=== PATIENT | female | born 1960 | race Caucasian/White ===

== ENCOUNTER 2017-07-10 10:22 | Inpatient (IN) | payer OTHER ==
[~2017-07-10] VITALS: Ht 172.7 cm; Wt 95.3 kg
[2017-07-10] MEDS ORDERED: DILTIAZEM HCL 25 MG/5 ML VIAL IV ONE ×3 (10:52→13:00)
[2017-07-10 11:14] LABS: Basophils # (auto) 0 uL; Basophils % (auto) 0.6 % (0.0-2.0); Eosinophils # (auto) 0.3 uL; Eosinophils % (auto) 6.5 % (0.0-7.0); Hematocrit 45.6 % (36.0-46.0); Hemoglobin 15.5 g/dL (12.2-16.2); Lymphocytes # (auto) 2.3 uL; Lymphocytes % (auto) 44.7 % (10.0-50.0); Mean Corpuscular Hgb Conc. 33.9 g/dL (32.0-36.0); Mean Corpuscular Volume 94.3 fL (80.0-100.0); Monocytes # (auto) 0.6 uL; Monocytes % (auto) 10.9 % (0.0-12.0); Neutrophils # (auto) 1.9 uL; Neutrophils % (auto) 37.3 % (37.0-80.0); Nucleated Red Blood Cells % 0.1 %; Platelet Count (auto) 249 10^3/uL (140-450); Red Cell Distribution Width 13.6 % (11.8-14.3); White Blood Cell 5.2 10^3/uL (4.4-10.8)
[2017-07-10] MEDS ORDERED: SODIUM CHLORIDE 0.9% 1,000 ML IVB ONE (11:16)
[2017-07-10 11:39] LABS: Albumin 3.8 g/dL (3.4-5.0); Alkaline Phosphatase 105 U/L (45-117); Anion Gap 10 (5-15); Aspartate Aminotransferase 15 U/L (15-37); BUN/Creatinine Ratio 13.2; Bilirubin, Total 0.7 mg/dL (0.2-1.0); Blood Urea Nitrogen 12 mg/dL (7-18); Calcium 8.6 mg/dL (8.5-10.1); Carbon Dioxide 23 mmol/L (21-32); Chloride 106 mmol/L (98-107); GFR African American 82 mL/min; GFR Non-African American 67 mL/min; Glucose 99 mg/dL (74-106); Magnesium 2.2 mg/dL (1.6-2.6); Potassium 3.5 mmol/L (3.5-5.1); Sodium 139 mmol/L (136-145); Total Protein 7.3 g/dL (6.4-8.2)
[2017-07-10 11:52] LABS: Urine Bilirubin Negative (Negative); Urine Blood Negative /uL (Negative); Urine Color Yellow (Yellow); Urine Glucose Normal (Normal); Urine Ketone Negative (Negative); Urine Nitrite Negative (Negative); Urine RBC <1 /hpf (0 - 4); Urine Squamous Epithelial Cell FEW /hpf (<5); Urine Urobilinogen Normal (Negative)
[2017-07-10 11:59] LABS: INR 1.01 (0.9-1.15); Partial Thromboplastin Time 25.4 sec (22.64-33.71)
[2017-07-10 12:20] LABS: B-Type Natriuretic Peptide 36.58 pg/mL (0-100)
[2017-07-10] MEDS ORDERED: cefTRIAXone 1GM/10ml IVPUSH 10 ML IV ONE (12:30)
[2017-07-10 12:42] LABS: Temperature: 23.1 C (20.0-25.0)
[2017-07-10] MEDS ORDERED: DIGOXIN (250MCG/ML) 2 ML AMPULE IV ONE (12:45)
[2017-07-10] MEDS ORDERED: LORazepam 0.5 MG TAB PO PRN (13:15)
[2017-07-10] MEDS ORDERED: NITROGLYCERIN 0.4 MG SL TAB SL PRN (13:15)
[2017-07-10] MEDS ORDERED: ACETAMINOPHEN 500 MG TAB PO PRN (13:15)
[2017-07-10] MEDS ORDERED: MORPHINE SULF INJ 2 MG/ML SYRINGE 1ML IV PRN ×2 (13:15)
[2017-07-10] MEDS ORDERED: TEMAZEPAM 15 MG CAP PO PRN (13:15)
[2017-07-10] MEDS ORDERED: LACTULOSE 20Gm/30ML SOLN PO PRN (13:15)
[2017-07-10] MEDS ORDERED: PROMETHAZINE HCL 25 MG/ML 1ML IV PRN (13:15)
[2017-07-10] MEDS ORDERED: HYDROcodone-ACET 5/325MG TAB PO PRN (13:15)
[2017-07-10] MEDS ORDERED: AMIODARONE HCL 150 MG in D5W 5% 100 ML IV ONE (13:50)
[2017-07-10] MEDS ORDERED: AMIODARONE HCL 900 MG in DEXTROSE 500 ML IV SCH ×2 (14:00→20:00)
[2017-07-10] MEDS ORDERED: CYAN500L3 PO (15:29)
[2017-07-10] MEDS ORDERED: ASPI81CH59 PO (15:29)
[2017-07-10] MEDS ORDERED: LEVO88TA4 PO (15:29)
[2017-07-10] MEDS ORDERED: CYANOCOBALAMIN 500 MCG TAB PO ONE (17:30)
[2017-07-10] MEDS ORDERED: METOPROLOL TARTRATE 25 MG TAB PO SCH (22:00)
[2017-07-10] MEDS: NITROGLYCERIN 2% OINT 1GM PKG TD ONE ×2 (22:07→22:17)
[2017-07-10] MEDS: NITROGLYCERIN 2% OINT 1GM PKG TD SCH ×2 (22:16→23:15)
[2017-07-10 22:50] VITALS: BP 145/93
[2017-07-10] MEDS: FAMOTIDINE 20 MG TAB PO SCH (23:15)
[2017-07-10] MEDS: ENOXAPARIN SOD 100 MG/1 ML SYRINGE SC SCH (23:15)
[2017-07-10] MEDS: METOPROLOL TARTRATE 50 MG TAB PO SCH (23:15)
[2017-07-11 00:45] VITALS: BP 111/73
[2017-07-11] MEDS: NITROGLYCERIN 2% OINT 1GM PKG TD SCH ×2 (00:58→02:00)
[2017-07-11] MEDS ORDERED: MELA3TAB27 PO (01:50)
[2017-07-11 02:30] VITALS: BP 103/60
[2017-07-11 05:41] LABS: Basophils # (auto) 0.1 uL; Basophils % (auto) 0.9 % (0.0-2.0); Eosinophils # (auto) 0.3 uL; Eosinophils % (auto) 4.4 % (0.0-7.0); Hematocrit 39.7 % (36.0-46.0); Hemoglobin 13.6 g/dL (12.2-16.2); Lymphocytes % (auto) 31.1 % (10.0-50.0); Mean Corpuscular Hemoglobin 32.6 pg (28.0-32.0); Mean Corpuscular Hgb Conc. 34.3 g/dL (32.0-36.0); Mean Corpuscular Volume 95.1 fL (80.0-100.0); Mean Platelet Volume 9.5 fL (6.9-10.8); Monocytes # (auto) 0.7 uL; Monocytes % (auto) 11.4 % (0.0-12.0); Neutrophils # (auto) 3.4 uL; Neutrophils % (auto) 52.2 % (37.0-80.0); Platelet Count (auto) 210 10^3/uL (140-450); Red Cell Distribution Width 13.6 % (11.8-14.3); White Blood Cell 6.5 10^3/uL (4.4-10.8)
[2017-07-11 06:26] LABS: Albumin 3.2 g/dL (3.4-5.0); BUN/Creatinine Ratio 13.2; Bilirubin, Total 0.7 mg/dL (0.2-1.0); Calcium 8.3 mg/dL (8.5-10.1); Potassium 3.7 mmol/L (3.5-5.1); Total Protein 6.2 g/dL (6.4-8.2)
[2017-07-11] MEDS ORDERED: LEVOTHYROXINE SODIUM 88 MCG TAB PO SCH (07:00)
[2017-07-11 08:00] VITALS: BP 130/75
[2017-07-11] MEDS ORDERED: cefTRIAXone 1GM/10ml IVPUSH 10 ML IV SCH (09:00)
[2017-07-11] MEDS ORDERED: ASPirin 81 mg TAB PO SCH (10:00)
[2017-07-11] MEDS ORDERED: PATIENTS OWN MEDICATION (Aspirin (Aspirin Low Dose) 1 TAB) PO SCH ×2 (10:00)
[2017-07-11] MEDS ORDERED: CYANOCOBALAMIN 500 MCG TAB PO SCH (10:00)
[2017-07-11] MEDS: FAMOTIDINE 20 MG TAB PO SCH (10:50)
[2017-07-11] MEDS: ENOXAPARIN SOD 100 MG/1 ML SYRINGE SC SCH (10:50)
[2017-07-11] MEDS: METOPROLOL TARTRATE 50 MG TAB PO SCH (10:58)
[2017-07-11] MEDS ORDERED: LEV100T PO (11:45)
[2017-07-11] MEDS ORDERED: METO25TA5 PO (11:45)
[2017-07-11 11:50] VITALS: BP 122/70
[2017-07-11] MEDS ORDERED: LEVO-28 PO (11:50)
[2017-07-11] MEDS ORDERED: METOPROLOL TARTRATE 25 MG TAB ONE (11:53)
[2017-07-11 16:00] VITALS: BP 129/76
[2017-07-11 16:02] VITALS: BP 129/76
[2017-07-11] MEDS ORDERED: METOPROLOL TARTRATE 25 MG TAB PO SCH (22:00)
[2017-07-12] MEDS ORDERED: AMIODARONE HCL 200 MG TAB PO SCH (10:00)
== END 2017-07-11 17:25 | disposition home or self-care (01) | DRG 309 ==
LOC: EDBD 10:22 → ER 10:22 → TELE 10:23 → DOU IN ICU 22:45
PROVIDERS: ADMIT Internal Medicine; ATTEND Internal Medicine
DX: I48.91 Unspecified atrial fibrillation (principal); N39.0 Urinary tract infection, site not specified; E66.01 Morbid (severe) obesity due to excess calories; E03.9 Hypothyroidism, unspecified; B96.20 Unspecified Escherichia coli [E. coli] as the cause of diseases classified elsewhere; E78.5 Hyperlipidemia, unspecified; Z82.49 Family history of ischemic heart disease and other diseases of the circulatory system; Z82.5 Family history of asthma and other chronic lower respiratory diseases; Z68.31 Body mass index [BMI] 31.0-31.9, adult
CPT/HCPCS: 36415; 71010; 80053; 80061; 80307; 81001; 83735; 83880; 84443; 84484; 85025; 85379; 85610; 85652; 85730; 86141; 87081; 87086; 87088; 87186; 93005; 93306; 96361; 96365; 96375; 99291; J7060

== ENCOUNTER 2022-06-12 13:43 | Emergency (ER) | payer OTHER ==
[~2022-06-12] VITALS: Ht 172.7 cm; Wt 104.0 kg
[~2022-06-12 13:43] MED LIST: ASPI81CH59 PO; CYAN500L3 PO; LEV100T PO; LEVO-28 PO; MELA3TAB27 PO; METO25TA5 PO
[2022-06-12] MEDS ORDERED: ONDANSETRON HCL 4 MG/2 ML VIAL IV ONE (15:45)
[2022-06-12] MEDS ORDERED: MORPHINE SULFATE 4 MG/ML SYR/VIAL IV ONE (15:45)
[2022-06-12] MEDS ORDERED: PROCHLORPERAZINE EDISYLATE 5 MG/ML 2ML VIAL IV ONE (16:45)
[2022-06-12] MEDS ORDERED: SODIUM CHLORIDE 0.9% 1,000 ML IV ONE (17:30)
[2022-06-12 18:09] LABS: Basophils # (auto) 0 10 ^3/uL (0-0.2); Basophils % (auto) 0.3 % (0.0-2.0); Eosinophils # (auto) 0 10 ^3/uL (0-0.8); Hematocrit 43.3 % (36.0-46.0); Hemoglobin 14.4 g/dL (12.2-16.2); Lymphocytes # (auto) 0.8 10 ^3/uL (0.4-5.4); Lymphocytes % (auto) 9.1 % (10.0-50.0); Mean Corpuscular Hemoglobin 31.3 pg (28.0-32.0); Mean Corpuscular Hgb Conc. 33.4 g/dL (32.0-36.0); Mean Corpuscular Volume 93.7 fL (80.0-100.0); Monocytes # (auto) 0.4 10 ^3/uL (0-1.3); Monocytes % (auto) 5.1 % (0.0-12.0); Neutrophils # (auto) 7.1 10 ^3/uL (1.6-8.6); Neutrophils % (auto) 85.5 % (37.0-80.0); Red Blood Cells 4.62 10^6/uL (4.0-5.20); Red Cell Distribution Width 13.4 % (11.8-14.3); White Blood Cell 8.3 10^3/uL (4.4-10.8)
[2022-06-12 18:25] LABS: INR 1.06 (0.9-1.15); Partial Thromboplastin Time 26.2 sec (24.6-33.4)
[2022-06-12 18:38] LABS: Albumin 3.6 g/dL (3.4-5.0); BUN/Creatinine Ratio 16.9; Calcium 8.8 mg/dL (8.5-10.1); Potassium 3.7 mmol/L (3.5-5.1)
[2022-06-12 18:40] LABS: Bilirubin, Total 0.9 mg/dL (0.2-1.0); Total Protein 6.4 g/dL (6.4-8.2)
[2022-06-12] MEDS ORDERED: MORPHINE SULFATE INJ 2 MG/ml SYRG IV ONE (20:30)
[2022-06-12 23:26] VITALS: BP 113/68
== END 2022-06-12 23:50 | disposition short-term general hospital (02) ==
LOC: EDBD 13:43 → ER 13:43
DX: S72.002A Fracture of unspecified part of neck of left femur, initial encounter for closed fracture (principal); M79.10 Myalgia, unspecified site; E03.9 Hypothyroidism, unspecified; Z90.710 Acquired absence of both cervix and uterus; Z79.82 Long term (current) use of aspirin; Z79.2 Long term (current) use of antibiotics; Z79.899 Other long term (current) drug therapy; Z88.0 Allergy status to penicillin; Z88.5 Allergy status to narcotic agent; Z91.048 Other nonmedicinal substance allergy status; W18.39XA Other fall on same level, initial encounter; Y93.89 Activity, other specified; Y92.89 Other specified places as the place of occurrence of the external cause; Y99.8 Other external cause status
CPT/HCPCS: 36415; 70450; 71045; 72125; 72192; 80053; 84484; 85025; 85610; 85730; 96361; 96374; 96375; 99285; J0780; J2270; J7030; J2405

== ENCOUNTER 2025-03-03 07:17 | Outpatient (CLI) | payer MEDICARE ==
[~2025-03-03] VITALS: Ht 172.7 cm; Wt 86.6 kg
[~2025-03-03 07:17] MED LIST changes: -CYAN500L3 PO; +CYAN500L4 PO; -LEV100T PO; -LEVO-28 PO; +LEVO-849 PO; +LEVO500T91 PO
[2025-03-03] MEDS: REGADENOSON 0.4 MG/5 ML SYRG IV ONE ×2 (09:09→09:21)
== END 2025-03-03 17:00 | disposition home or self-care (01) ==
LOC: XYW 07:17
PROVIDERS: ATTEND Specialist
DX: I48.91 Unspecified atrial fibrillation (principal); R07.9 Chest pain, unspecified; I10 Essential (primary) hypertension; R00.0 Tachycardia, unspecified; E78.5 Hyperlipidemia, unspecified
CPT/HCPCS: 93017; J2785